=== PATIENT | male | born 1985 | race African-American/Black ===

== ENCOUNTER 2020-06-15 15:25 | Inpatient (IN) ==
[2020-06-15] MEDS ORDERED: DIPH/TET/ACEL PERT BOOSTER VACCINE 0.5 ML VIAL IM ONE (15:32)
[2020-06-15] MEDS ORDERED: LACTATED RINGERS 1,000 ML IV STA (15:32)
[2020-06-15 15:49] LABS: Basophils % 0.3 % (0.0-0.8); Eosinophils % 0.3 % (0.00-10.9); Hematocrit 39.7 VOL% (42.0-52.0); Hemoglobin 13.1 GM/DL (14.0-18.0); Immature Granulocytes % 0.3 %; Immature Granulocytes Absolute 0.02 #; Lymphocytes # 0.9 10*3/uL (1.4-4.0); Lymphocytes % 12.6 % (21.2-54.2); Mean Corpuscular Volume 91.1 FL (87-102); Mean Platelet Volume 10.1 FL (9.6-12.0); Neutrophils % 77.5 % (38.7-73.9); Platelet Count 224 T/CUMM (130-400); Red Blood Count 4.36 MC/CUMM (3.8-5.5); Red Cell Distribution Width 13.2 % (9.3-17.3); White Blood Count 7.5 T/CUMM (4-12)
[2020-06-15] MEDS ORDERED: SODIUM CHLORIDE 0.9% 1,000 ML IV STA (16:00)
[2020-06-15 16:06] LABS: Alanine Aminotransferase 21 U/L (16-61); Albumin 4.1 G/DL (3.4-5.0); Alkaline Phosphatase 51 U/L (45-117); Aspartate Amino Transferase 24 U/L (0-37); Blood Urea Nitrogen 4 MG/DL (7-18); Calcium 9.4 MG/DL (8.5-10.1); Estimated Glom Filtration Rate 102 ML/MIN; Glucose 95 MG/DL (74-106); Osmolality,Calculated 277.3 MOS/KG (273-304); Total Protein 7.5 G/DL (6.4-8.3)
[2020-06-15] MEDS ORDERED: GENTAMICIN INJ 140 MG in SODIUM CHLORIDE 0.9% 100 ML IV STA (16:13)
[2020-06-15] MEDS ORDERED: ACETAMINOPHEN 325 MG TABLET PO PRN (16:25)
[2020-06-15] MEDS ORDERED: ONDANSETRON 4 MG/2 ML VIAL IV PRN (16:25)
[2020-06-15 16:35] LABS: Hypochromasia 3+; Platelet Estimate Normal
[2020-06-15 16:42] LABS: Apearance,Urine CLOUDY (Clear); Blood, Urine Small mg/dL (Negative); Glucose,Urine (UA) Negative (Negative); Hyaline Casts,Urine 178 /LPF (0-3); Ketones,Urine 20 mg/dL (Negative); Mucus,Urine Many /LPF (Occasional); Nitrite,Urine Negative (Negative); Protein,Urine >=500 MG/DL; RBC,Urine 10 /HPF (0-4); Urine Color Amber (Yellow); Urine Specific Gravity 1.022 (1.001-1.035); WBC,Urine 6 /HPF (0-6)
[2020-06-15 16:43] LABS: Bilirubin,Urine Moderate mg/dL (Negative)
[2020-06-15 16:49] LABS: Barbiturates Screen,Urine Negative (Negative); Benzodiazepines Screen,Urine Negative (Negative); Cannabinoid Screen,Urine Negative (Negative); Opiate Screen,Urine Negative (Negative); Phencyclidine Screen,Urine Negative (Negative)
[2020-06-15 17:38] LABS: INR 1.1; PT Patient Result 12.1 SECS (9.8-11.9)
[2020-06-15 17:43] LABS: Partial Thromboplastin Time < 20.0 SECS (23.9-33.8)
[2020-06-15] MEDS: MORPHINE 4 MG/1 ML VIAL IV PRN (18:48)
[2020-06-15] MEDS: ceFAZolin 1,000 MG in SYRINGE 1 EACH IV SCH (21:30)
[2020-06-15] MEDS: LACTATED RINGERS 1,000 ML IV SCH (21:30)
[2020-06-16] MEDS: MORPHINE 4 MG/1 ML VIAL IV PRN (01:28)
[2020-06-16] MEDS: ceFAZolin 1,000 MG in SYRINGE 1 EACH IV SCH ×4 (04:26→22:02)
[2020-06-16 05:44] LABS: Basophils % 0.2 % (0.0-0.8); Eosinophils % 0.1 % (0.00-10.9); Hematocrit 31.8 VOL% (42.0-52.0); Hemoglobin 10.3 GM/DL (14.0-18.0); Immature Granulocytes % 0.2 %; Immature Granulocytes Absolute 0.02 #; Lymphocytes # 1.6 10*3/uL (1.4-4.0); Lymphocytes % 17.9 % (21.2-54.2); Mean Corpuscular HGB Conc 32.4 GM/DL (32-36); Mean Corpuscular Volume 93.3 FL (87-102); Mean Platelet Volume 9.3 FL (9.6-12.0); Monocytes % 14.7 % (1.7-12.7); Neutrophils % 66.9 % (38.7-73.9); Platelet Count 224 T/CUMM (130-400); Red Blood Count 3.41 MC/CUMM (3.8-5.5); Red Cell Distribution Width 13.3 % (9.3-17.3); White Blood Count 8.8 T/CUMM (4-12)
[2020-06-16 06:10] LABS: Calcium 8.2 MG/DL (8.5-10.1); Osmolality,Calculated 273.5 MOS/KG (273-304)
[2020-06-16] MEDS: PANTOPRAZOLE 40 MG TABLET PO SCH (09:23)
[2020-06-16] MEDS ORDERED: PALIPERIDONE PALMITATE 234 MG IM SCH (10:30)
[2020-06-16] MEDS ORDERED: carvediloL 12.5 MG TABLET PO SCH (10:30)
[2020-06-16] MEDS ORDERED: ILOPERIDONE 8 MG PO SCH (10:30)
[2020-06-16] MEDS: LACTATED RINGERS 1,000 ML IV SCH ×2 (10:36→10:37)
[2020-06-16 11:19] LABS: Hepatitis B Core IgM Quant 0.13 Index; Hepatitis B Surface Ag Quant < 0.10 Index; Hepatitis B Surface Ag Result Negative (Negative); Hepatitis C Virus Ab Quant 0.03 Index; Hepatitis C Virus Ab Result Negative (Negative)
[2020-06-16] MEDS: BENZTROPINE 1 MG TABLET PO SCH ×2 (11:40→22:00)
[2020-06-16] MEDS: CITALOPRAM 20 MG TABLET PO SCH (14:00)
[2020-06-16] MEDS: POTASSIUM CHLORIDE 20 MEQ TABLET PO PRN ×3 (14:00→22:00)
[2020-06-16] MEDS: PROPRANOLOL 40 MG TABLET PO SCH ×2 (14:00→22:00)
[2020-06-16] MEDS: NICOTINE 21 MG/24 HR PATCH TRANSDERM SCH (14:01)
[2020-06-17] MEDS: ceFAZolin 1,000 MG in SYRINGE 1 EACH IV SCH ×2 (05:35→14:50)
[2020-06-17 05:54] LABS: Basophils % 0.1 % (0.0-0.8); Eosinophils # 0.1 10*3/uL (0.0-0.87); Eosinophils % 1.2 % (0.00-10.9); Hematocrit 28.7 VOL% (42.0-52.0); Hemoglobin 9.8 GM/DL (14.0-18.0); Immature Granulocytes % 0.3 %; Immature Granulocytes Absolute 0.02 #; Lymphocytes % 27.3 % (21.2-54.2); Mean Corpuscular HGB Conc 34.1 GM/DL (32-36); Mean Corpuscular Volume 90.8 FL (87-102); Mean Platelet Volume 9.8 FL (9.6-12.0); Monocytes % 14.5 % (1.7-12.7); Neutrophils % 56.6 % (38.7-73.9); Platelet Count 182 T/CUMM (130-400); Red Blood Count 3.16 MC/CUMM (3.8-5.5); Red Cell Distribution Width 13.2 % (9.3-17.3); White Blood Count 7.4 T/CUMM (4-12)
[2020-06-17 06:25] LABS: Calcium 8.4 MG/DL (8.5-10.1); Osmolality,Calculated 271.7 MOS/KG (273-304)
[2020-06-17] MEDS: BENZTROPINE 1 MG TABLET PO SCH (09:11)
[2020-06-17] MEDS: CITALOPRAM 20 MG TABLET PO SCH (09:11)
[2020-06-17] MEDS: NICOTINE 21 MG/24 HR PATCH TRANSDERM SCH (09:12)
[2020-06-17] MEDS: PROPRANOLOL 40 MG TABLET PO SCH (09:12)
[2020-06-17] MEDS: PANTOPRAZOLE 40 MG TABLET PO SCH (09:12)
[2020-06-17 11:38] LABS: Hematocrit 30.8 VOL% (42.0-52.0); Hemoglobin 9.9 GM/DL (14.0-18.0)
[2020-06-17 12:17] VITALS: BP 117/78
== END 2020-06-17 15:15 | DRG 562 ==
LOC: EDBD → EDUNIT# → N.ED 15:25 → N.EDINP 16:25 → N.3E 17:59
PROVIDERS: ADMIT Surgery; ATTEND Surgery